=== PATIENT | female | born 2000 | race Hispanic/Latino ===

== ENCOUNTER 2022-06-21 20:07 | Emergency (ER) | payer SELFPAY ==
[2022-06-21] MEDS ORDERED: Acetaminophen 500 MG TAB ONE (21:46)
[2022-06-21] MEDS ORDERED: Dexamethasone 10 MG/ML VIAL ONE (21:47)
== END 2022-06-21 22:08 | disposition home or self-care (01) ==
LOC: CSHERS 20:07
DX: J02.0 Streptococcal pharyngitis (principal)
CPT/HCPCS: 87430; 99283; J1100

== ENCOUNTER 2023-05-10 18:26 | Emergency (ER) | payer OTHER, SELFPAY ==
[2023-05-10 20:00] LABS: SARS-CoV-2 NAA Rapid Test Not Detected (NotDetected)
== END 2023-05-10 20:33 | disposition home or self-care (01) ==
LOC: CSHERS 18:26
DX: J18.9 Pneumonia, unspecified organism (principal)
CPT/HCPCS: 71045